=== PATIENT | male | born 1975 | race Caucasian/White ===

== ENCOUNTER 2020-01-13 15:17 | Outpatient (REF) | payer OTHER, SELFPAY ==
--- NOTE | 2020-01-13 15:32 | XR_ITS ---
EXAMINATION: XR LUMBOSACRAL SPINE CLINICAL INFORMATION: Lumbago. Sciatica. COMPARISON: None TECHNIQUE: Three views of the lumbosacral spine. FINDINGS: The vertebral bodies and posterior elements are normal. The disc spaces are preserved and the vertebral alignment is normal. The paraspinal soft tissues are normal. The sacroiliac joints are symmetric. The sacrum is intact. There does appear to be lumbarization of S1. XR/XR lumbar spine 2-3V IMPRESSION: Lumbarization of S1. Otherwise unremarkable lumbar spine radiographs.
--- NOTE | 2020-01-13 15:33 | XR_ITS ---
EXAMINATION: XR BILATERAL HIPS WITH AP PELVIS CLINICAL INFORMATION: Bilateral hip joint pain COMPARISON: None TECHNIQUE: 2 views of each hip FINDINGS: Right hip: No fracture or dislocation. The femoral head articulates appropriately with its acetabulum. The joint space is maintained. The visualized pelvis is intact. Left hip: No fracture or dislocation. Cam-type deformity at the left femoral head neck junction. The femoral head articulates appropriately with its acetabulum. The visualized pelvis is intact. The bowel gas pattern is unremarkable. 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 This may predispose to femoral acetabular impingement.
== END 2020-01-13 15:18 | disposition home or self-care (01) ==
LOC: HO.XRAY 15:17
PROVIDERS: PCP Internal Medicine; Visit Provider Internal Medicine
DX: M51.17 Intervertebral disc disorders with radiculopathy, lumbosacral region (principal); M25.551 Pain in right hip; M25.552 Pain in left hip
CPT/HCPCS: 72100; 73522

== ENCOUNTER 2020-01-20 15:41 | Outpatient (REF) | payer OTHER, SELFPAY ==
--- NOTE | 2020-01-20 16:00 | MR_ITS ---
EXAMINATION: MR LUMBAR SPINE WITHOUT CONTRAST CLINICAL INFORMATION: Low back pain. Leg pain. COMPARISON: X-ray dated 01/13/2020 TECHNIQUE: MRI of the lumbar spine was obtained using routine sequences without contrast. FINDINGS: VERTEBRAL BODIES AND PARASPINAL STRUCTURES: The S1 vertebra is transitional in appearance. There is a mild retrosubluxation and mild disc space narrowing with reduced intradiscal signal at L5-S1. No compression fractures identified. The paraspinal soft tissues are normal. CONUS MEDULLARIS AND CAUDA EQUINA: Normal, terminating at the level of L1-L2. No lower cord signal abnormality is seen. The cauda equina nerve roots are normal. SPINAL LEVELS: L1-L2, L2-L3, and L3-L4: Well-hydrated normal appearance of the discs without central canal stenosis or foraminal narrowing. L4-L5: Mild diffuse disc bulge without central canal stenosis. Right foraminal disc protrusion compresses the exiting right L4 nerve root with mild foraminal encroachment. L5-S1: Retrosubluxation and mild degenerative endplate changes with a posterior disc bulge and small central disc protrusion. No central canal stenosis. Bulging disc and endplate spurring result in [id number] right foraminal encroachment. MR/MR lumbar spine wo con IMPRESSION: Right foraminal disc protrusion at L4-L5 mildly compressing the exiting right L4 nerve root. Retrosubluxation with mild spondylitic changes and a posterior disc bulge and L5-S1. Small central disc protrusion without nerve root impingement. [id number] right foraminal narrowing, bulging disc and endplate spurring.
== END 2020-01-20 15:42 | disposition home or self-care (01) ==
LOC: HO.MRI 15:41
PROVIDERS: PCP Internal Medicine; Visit Provider Internal Medicine
DX: M51.16 Intervertebral disc disorders with radiculopathy, lumbar region (principal)
CPT/HCPCS: 72148

== ENCOUNTER 2021-06-03 10:00 | Outpatient (REF) | payer OTHER, SELFPAY ==
[2021-06-03 10:14] LABS: MANUAL DIFF FLAG NO
[2021-06-03 10:39] LABS: Basophils Percent Auto 0.4 % (0-2); Eosinophils Absolute Auto 0.2 X10*3/uL (0.0-0.4); Eosinophils Percent Auto 2.6 % (0-4); Hematocrit 46.3 % (42.0-52.0); Hemoglobin 15.6 g/dl (14.0-18.0); Imm Gran Abs Auto 0.01 X10*3/uL (0.00-0.03); Imm Gran Pct Auto 0.1 % (0.0-0.4); Lymphocytes Absolute Auto 1.7 X10*3/uL (1.2-4.9); Lymphocytes Percent Auto 24.5 % (20-40); Mean Corpuscular HGB Conc 33.7 g/dl (31.0-36.0); Mean Corpuscular Hemoglobin 30.4 pg (27.0-33.0); Mean Corpuscular Volume 90.1 fL (80.0-98.0); Mean Platelet Volume 11.3 fL (9.4-12.4); Monocytes Absolute Auto 0.6 X10*3/uL (0.1-1.2); Monocytes Percent Auto 8.1 % (2-11); Neutrophils Absolute Auto 4.4 x10*3/uL (2.0-8.3); Neutrophils Percent Auto 64.3 % (45-73); Platelet Count 261 X10*3/uL (160-400); Red Blood Count 5.14 X10*6/uL (4.60-5.80); White Blood Count 6.9 X10*3/uL (4.8-10.8)
[2021-06-03 11:02] LABS: Estimated Average Glucose 91 mg/dL; Hemoglobin A1c % 4.8 %
[2021-06-03 11:35] LABS: Alanine Aminotransferase 26 U/L (0-40); Albumin Level 4.8 g/dL (3.5-5.0); Alkaline Phosphatase 66 U/L (39-117); Anion Gap 16 (12-20); Aspartate Amino Transferase 23 U/L (5-37); Bilirubin Total 0.9 mg/dL (0.0-1.0); Blood Urea Nitrogen 13 mg/dL (9-16); Calcium 9.8 mg/dL (8.4-10.2); Carbon Dioxide 25 mmol/L (22-29); Chloride 103 mmol/L (96-108); Estimated Glomerular Filt Rate > 60; Glucose Random 85 mg/dL (60-115); Magnesium 2.6 mg/dL (1.6-2.6); Sodium 139 mmol/L (135-145); Total Protein 7.9 g/dL (6.5-8.0)
[2021-06-03 11:56] LABS: Thyroid Stimulating Hormone 0.81 uIU/mL (0.32-4.0)
== END 2021-06-03 10:01 | disposition home or self-care (01) ==
LOC: HO.LAB 10:00
PROVIDERS: PCP Internal Medicine; Visit Provider Physician Assistant
DX: R55 Syncope and collapse (principal)
CPT/HCPCS: 36415; 80053; 83036; 83735; 84443; 85025

== ENCOUNTER 2021-07-15 10:53 | Outpatient (REF) | payer OTHER, SELFPAY ==
--- NOTE | ~2021-07-15 | CT_ITS ---
EXAMINATION: CT HEAD WITHOUT CONTRAST CLINICAL INFORMATION: Repeated falls. COMPARISON: None TECHNIQUE: Contiguous axial imaging was performed from the skull base to vertex without intravenous administration of contrast. This CT examination was performed using dose optimization techniques as appropriate, variously including the following: *Automated exposure control *Adjustment of mA and/or kV according to patient size (this includes techniques or standardized protocols for targeted exams where dose is matched to indication/reason for exam; i.e. extremities or head) *Use of iterative reconstruction technique DLP: 770 mGy-cm FINDINGS: There is no evidence of acute intracranial hemorrhage or territorial infarction. No abnormal mass effect or midline shift is seen. Burgess to white matter differentiation is well preserved. No extra-axial fluid collections are identified. The ventricles are normal in size. There is no abnormal attenuation within the brain parenchyma. The osseous structures and soft tissues are normal. The mastoid air cells and visualized portions of the paranasal sinuses are well aerated. CT/CT head/brain wo con IMPRESSION: No acute intracranial process seen.
== END 2021-07-15 10:54 | disposition home or self-care (01) ==
LOC: HO.CT 10:53
PROVIDERS: PCP Internal Medicine; Visit Provider Physician Assistant
DX: R26.9 Unspecified abnormalities of gait and mobility (principal)
CPT/HCPCS: 70450

== ENCOUNTER → 2021-10-06 13:44 | Outpatient (REF) | payer OTHER, SELFPAY ==
--- NOTE | ~2021-10-06 | US_ITS ---
EXAMINATION: US EXTRACRANIAL CAROTID DUPLEX, BILATERAL CLINICAL INFORMATION: This is a 46-year-old male with syncope and collapse. COMPARISON: None TECHNIQUE: Real-time ultrasound and Doppler techniques (integrating B-mode 2-D vascular images, Doppler spectral analysis and color-flow Doppler imaging) were utilized to interrogate the extracranial carotid arteries, the vertebral arteries and proximal subclavian arteries bilaterally. The degree of stenosis is determined by criteria similar to NASCET. FINDINGS: Right Side: 1. There is no atherosclerotic plaque seen in the bifurcation/proximal ICA region. 2. The common carotid artery PSV proximally is 127 cm/s and distally 110 cm/s. 3. The proximal internal carotid artery velocities are 56 cm/s systolic and 9 cm/s diastolic. 4. The proximal external carotid artery PSV is 127 cm/s. 5. The vertebral artery shows antegrade flow. 6. The subclavian artery waveforms are normal. Left Side: 1. There is no atherosclerotic plaque seen in the bifurcation/proximal ICA region. 2. The common carotid artery PSV proximally is 152 cm/s and distally 107 cm/s. 3. The proximal internal carotid artery velocities are 68 cm/s systolic and 12 cm/s diastolic. 4. The proximal external carotid artery PSV is 79 cm/s. 5. The vertebral artery shows antegrade flow. 6. The subclavian artery waveforms are normal. US/US carotid duplex BI IMPRESSION: 1. RIGHT: Normal right internal carotid artery without atherosclerotic plaque or hemodynamically significant stenosis. 2. LEFT: Normal left internal carotid artery without atherosclerotic plaque or hemodynamically significant stenosis.
--- NOTE | 2021-10-06 14:00 | HM_ITS ---
TEST PERFORMED: Cardiac event monitoring. ENROLLMENT PERIOD: 10/06/2021 to 11/05/2021, 30 days. REQUESTING PHYSICIAN: Jaky Couch. INDICATIONS: Syncope and collapse. FINDINGS: In the above monitoring period, underlying rhythm was sinus. Rate ranged from 38 to 149 beats per minute. No significant arrhythmias noted. CONCLUSION: The study shows sinus rhythm, sinus tachycardia, but no other arrhythmias. No symptoms documented either. Overall unremarkable study. Santiago Henao MD HS/KELLE / [id number]
== END ==
LOC: HO.CARD 13:44
PROVIDERS: PCP Internal Medicine; Visit Provider Physician Assistant
DX: R55 Syncope and collapse (principal)
CPT/HCPCS: 93270; 93880

== ENCOUNTER 2022-05-30 05:31 | Emergency (ER) | payer OTHER, SELFPAY ==
[2022-05-30 05:41] VITALS: BP 138/86; PULSE 63; RESP 16; TEMP 36.6; O2SAT 100; BMI 26.6
--- NOTE | 2022-05-30 06:13 | ED_ITS ---
HPI - Back Pain/Injury General Chief Complaint: Back Pain/Injury Stated Complaint: back spasms Time Seen by Provider: 05/30/22 06:13 Source: patient Mode of arrival: ambulatory Limitations: no limitations History of Present Illness HPI Narrative: Patient with off and on back spasm last time was 2 years ago today he got up from the bed and noticed severe spasm on left lumbar paraspinal area no radiation of the pain no neuro deficit no bladder or bowel involvement no paresthesia no history of trauma no fever or chills no history of kidney stone no urinary complaints no abdominal pain no nausea vomiting Related Data Previous Rx's Medication Instructions Recorded cyclobenzaprine 10 mg tablet 10 mg PO Q8H #20 tabs 05/30/22 ibuprofen 600 mg tablet 600 mg PO Q6H PRN fever or pain 05/30/22 #30 tabs lidocaine 4 % topical patch 1 patch topical DAILY PRN pain #10 05/30/22 (Salonpas (lidocaine)) ea Allergies Allergy/AdvReac Type Severity Reaction Status Date / Time No Known Allergies Allergy Verified 05/30/22 05:47 Review of Systems Review of Systems: Yes all other systems are reviewed and are negative [facility] Social History Social History Smoked in Last 30 Days: No Use of substances other than those prescribed or required for medical reasons: No Advance Directives: No Physical Exam Vital Signs: Vital Signs: Last Vital Signs Temp 97.8 F 05/30/22 05:41 Pulse 63 05/30/22 05:41 Resp 16 05/30/22 05:41 BP 138/86 05/30/22 05:41 Pulse Ox 100 05/30/22 05:41 O2 Del Method Room Air 05/30/22 05:41 BMI result Body Mass Index 26.6 Appearance: Alert. Oriented X3. No acute distress. Eyes: PERRLA, ENT: Pharynx normal. Oral Mucosa moist Neck: Normal inspection. Neck supple. CVS: Normal heart rate and rhythm. Pulses normal. Respiratory: No respiratory distress. Equal air entry bilateral, no wheezing/rales/rhonchi Abdomen: Soft and nontender. Bowel sounds are present, no mass palpable, no CVA tenderness back: No midline spinal tenderness left lumbar paraspinal tenderness with spasm Skin: Skin warm and dry. Normal skin color. Normal skin turgor. Extremities: No lower extremity edema. No calf tenderness, straight leg raising test negative deep tendon reflexes 2+ bilateral Neuro: Oriented X 3. No motor deficit. No sensory deficit.No cerebellar signs , cranial nerves II-XII intact Medications Administered Discontinued Medications Generic Name Dose Route Start Last Admin Trade Name Freq PRN Reason Stop Dose Admin Cyclobenzaprine HCl 10 mg 05/30/22 06:22 05/30/22 06:28 Cyclobenzaprine Hcl 10 Mg Tablet PO 05/30/22 06:23 10 mg ONCE ONE Administration Lidocaine 1 patch 05/30/22 06:23 05/30/22 06:28 Lidocaine 4 % Patch Adh..Patch TRANSDERMA 05/30/22 06:24 1 patch ONCE ONE Administration Protocol Tramadol HCl 50 mg 05/30/22 06:22 05/30/22 06:27 Tramadol Hcl 50 Mg Tablet PO 05/30/22 06:23 50 mg ONCE ONE Administration Medical Decision Making Medical Decision Making MDM Narrative: Patient clinically with muscle spasm in lumbar area patient the left side no signs of spinal cord involvement no signs of infection. Discharge patient home on muscle relaxant and pain medication patient ambulatory in steady gait Discharge Plan Discharge Clinical Impression: Strain of lumbar region Patient Disposition: Home, Self-Care Instructions: Low Back Strain (ED) Additional Instructions: Take pain medication and muscle relaxants as prescribed Apply lidocaine patch at painful area Ice/hot packs Rest Follow with PCP if pain continues Prescriptions: New cyclobenzaprine 10 mg tablet 10 mg PO Q8H Qty: 20 0RF ibuprofen 600 mg tablet 600 mg PO Q6H PRN (Reason: fever or pain) Qty: 30 0RF lidocaine [Salonpas (lidocaine)] 4 % adhesive patch,medicated 1 patch topical DAILY PRN (Reason: pain) Qty: 10 0RF Rx Instructions: may leave on for up to 12 hrs Stand Alone Forms: Work/School Release Interventions: ED Discharge Assessment Last Done: 05/30/22 06:50 Discharge Date/Time: 05/30/22 06:52
[2022-05-30] MEDS: traMADoL HCL 50 MG TABLET PO (06:27)
[2022-05-30] MEDS: Cyclobenzaprine HCl 10 MG TABLET PO (06:28)
[2022-05-30] MEDS: Lidocaine 4 % Patch ADH..PATCH 1 PATCH TRANSDERMA (06:28)
--- NOTE | 2022-05-30 06:48 | PC.NURSE ---
pt medicated according to apr. pt calm and cooperative sitting on side of bed.
--- NOTE | 2022-05-30 06:49 | PC.NURSE ---
pt ambulatory at discharge. skin pwd. pt provided with discharge packet and work note. pt verbalized understanding of discharge plan.
== END 2022-05-30 06:52 | disposition home or self-care (01) ==
PROVIDERS: Emergency Provider Internal Medicine; PCP Internal Medicine
DX: M54.50 Low back pain, unspecified (principal)
CPT/HCPCS: 99283; 99284

== ENCOUNTER 2022-07-04 09:33 | Outpatient (REF) | payer OTHER, SELFPAY ==
[2022-07-04 12:42] LABS: Alanine Aminotransferase 44 U/L (0-40); Albumin Level 4.5 g/dL (3.5-5.0); Alkaline Phosphatase 56 U/L (39-117); Anion Gap 13 (12-20); Aspartate Amino Transferase 29 U/L (5-37); Blood Urea Nitrogen 15 mg/dL (9-16); Calcium 9.5 mg/dL (8.4-10.2); Carbon Dioxide 28 mmol/L (22-29); Chloride 104 mmol/L (96-108); Cholesterol 248 mg/dL; Estimated Glomerular Filt Rate > 60; Glucose Random 95 mg/dL (60-115); HDL Cholesterol 45 mg/dL; LDL Cholesterol Calculated 169 mg/dl; Potassium 4.7 mmol/L (3.3-5.1); Sodium 140 mmol/L (135-145); Total Protein 7.1 g/dL (6.5-8.0); Triglycerides 172 mg/dL
== END 2022-07-04 09:34 | disposition home or self-care (01) ==
LOC: HO.MANLDS 09:33
PROVIDERS: Visit Provider Internal Medicine
DX: Z00.00 Encounter for general adult medical examination without abnormal findings (principal); M62.82 Rhabdomyolysis; E78.00 Pure hypercholesterolemia, unspecified
CPT/HCPCS: 36415; 80053; 80061

== ENCOUNTER 2023-03-09 17:14 | Outpatient (REF) | payer OTHER, SELFPAY ==
--- NOTE | ~2023-03-09 | MR_ITS ---
MRI OF THE BRAIN WITHOUT IV CONTRAST INDICATION: TBI, IED Strike worsening memory, concentration COMPARISON: CT head on 07/15/2021. TECHNIQUE: Multiplanar multisequence MR imaging of the brain was obtained without IV contrast. FINDINGS: No acute intracranial hemorrhage or infarct. Few scattered periventricular and deep white matter T2/FLAIR hyperintensities, nonspecific however commonly seen with small vessel ischemic disease. No midline shift or hydrocephalus. No acute extra-axial fluid collections. The osseous structures are unremarkable. The pituitary gland, pineal gland and remaining midline structures are unremarkable. No orbital pathology. Mild mucosal thickening of the ethmoid air cells. The mastoid air cells are clear. MR/MR head/brain wo con IMPRESSION: Unremarkable MRI brain.
== END 2023-03-09 17:15 | disposition home or self-care (01) ==
LOC: HO.MRI 17:14
PROVIDERS: PCP Internal Medicine; Visit Provider Internal Medicine
DX: S06.9X0D Unspecified intracranial injury without loss of consciousness, subsequent encounter (principal)
CPT/HCPCS: 70551

== ENCOUNTER 2023-06-01 08:02 | Outpatient (REF) | payer OTHER, SELFPAY ==
[2023-06-01 08:14] LABS: MANUAL DIFF FLAG NO
[2023-06-01 08:48] LABS: Basophils Percent Auto 0.7 % (0-2); Eosinophils Absolute Auto 0.1 X10*3/uL (0.0-0.4); Eosinophils Percent Auto 2.6 % (0-4); Hematocrit 45.4 % (42.0-52.0); Hemoglobin 15.6 g/dl (14.0-18.0); Imm Gran Abs Auto 0.02 X10*3/uL (0.00-0.03); Imm Gran Pct Auto 0.4 % (0.0-0.4); Lymphocytes Absolute Auto 1.5 X10*3/uL (1.2-4.9); Lymphocytes Percent Auto 33.9 % (20-40); Mean Corpuscular HGB Conc 34.4 g/dl (31.0-36.0); Mean Corpuscular Hemoglobin 30.8 pg (27.0-33.0); Mean Corpuscular Volume 89.5 fL (80.0-98.0); Mean Platelet Volume 10.9 fL (9.4-12.4); Monocytes Absolute Auto 0.4 X10*3/uL (0.1-1.2); Monocytes Percent Auto 7.9 % (2-11); Neutrophils Absolute Auto 2.5 x10*3/uL (2.0-8.3); Neutrophils Percent Auto 54.5 % (45-73); Platelet Count 261 X10*3/uL (160-400); Red Blood Count 5.07 X10*6/uL (4.60-5.80); White Blood Count 4.5 X10*3/uL (4.8-10.8)
[2023-06-01 09:18] LABS: Alanine Aminotransferase 31 U/L (0-40); Albumin Level 4.5 g/dL (3.5-5.0); Alkaline Phosphatase 61 U/L (39-117); Anion Gap 13 (12-20); Aspartate Amino Transferase 20 U/L (5-37); Bilirubin Total 0.9 mg/dL (0.0-1.0); Blood Urea Nitrogen 14 mg/dL (9-16); Calcium 9.6 mg/dL (8.4-10.2); Carbon Dioxide 26 mmol/L (22-29); Chloride 107 mmol/L (96-108); Cholesterol 225 mg/dL (<200); Estimated Glomerular Filt Rate > 60; Glucose Random 90 mg/dL (60-115); HDL Cholesterol 42 mg/dL (>40); LDL Cholesterol Calculated 159 mg/dL (<100); Potassium 4.1 mmol/L (3.3-5.1); Sodium 142 mmol/L (135-145); Total Protein 7.3 g/dL (6.5-8.0); Triglycerides 120 mg/dL (<150)
[2023-06-01 09:34] LABS: Vitamin D 25-OH Total 18.4 ng/mL (>30)
[2023-06-01 09:43] LABS: Folate 11.2 ng/mL (> or = 4.0); Vitamin B12 252 pg/mL (200-900)
[2023-06-06 12:23] LABS: Testosterone, Total 599 ng/dL (250-1100)
== END 2023-06-01 08:03 | disposition home or self-care (01) ==
LOC: HO.LAB 08:02
PROVIDERS: PCP Internal Medicine; Visit Provider Internal Medicine
DX: Z12.5 Encounter for screening for malignant neoplasm of prostate (principal); I10 Essential (primary) hypertension; R53.83 Other fatigue
CPT/HCPCS: 36415; 80053; 80061; 82306; 82607; 82746; 84153; 84403; 85025

== ENCOUNTER 2023-08-21 07:32 | Outpatient (REF) | payer OTHER, SELFPAY ==
[2023-08-21 09:22] LABS: Vitamin D 25-OH Total 30.4 ng/mL (>30)
[2023-08-21 09:31] LABS: Vitamin B12 > 2000 pg/mL (200-900)
== END 2023-08-21 07:33 | disposition home or self-care (01) ==
LOC: HO.LAB 07:32
PROVIDERS: PCP Internal Medicine; Visit Provider Internal Medicine
DX: E55.9 Vitamin D deficiency, unspecified (principal); E53.8 Deficiency of other specified B group vitamins
CPT/HCPCS: 36415; 82306; 82607

== ENCOUNTER 2024-12-30 07:10 | Outpatient (REF) | payer OTHER, SELFPAY ==
--- OUTSIDE RECORDS SUMMARY | 2024-12-30 07:14 | XMS_ITS | Clinical Summary ---
Author Organization [facility] Address [address] [place] [address] Care Team Providers Care Composition Floor Layer Name Role Phone Unavailable Primary Care Provider Unavailabl e Social History Tobacco Use Types Packs/Day Years Used Date Smoking Tobacco: Never Assessed Sex and Gender Information Value Date Recorded Sex Assigned at Not on file Legal Sex Male 11:34 AM EST Gender Identity Not on file Sexual Orientation Not on file Plan of Treatment Health Maintenance Due Date Last Done Comments Hepatitis C Screening 1977 DTaP/Tdap/Td (1 - Tdap) 06/11/1995 Hep B (1 of 3 - 19+ 3-dose series) 1996 COVID-19 Vaccine (2024-2 6 season) 2024 Influenza (#1) 2024 Zoster (Shingrix) (1 of 2) 06/11/2027 HPV Vaccine (No Doses Required) Completed Hep A Aged Out No longer eligi ble based on patient's age to complete this topic Hib Aged Out No longer eligi ble based on patient's age to complete this topic Meningococcal ACWY Aged Out No longer eligible based on patient's age to complete this topic Pneumococcal Aged Out No longer eligi ble based on patient's age to complete this topic
--- OUTSIDE RECORDS SUMMARY | 2024-12-30 07:14 | XMS_ITS | Encounter Summary ---
Author Organization [facility] Address [address] [address] Phone Care Team Providers Care Purchaser Name Role Phone Pcp, Unknown Primary Care Provider Jaswinder Castro DO Primary Care Provider [phone] Encounter Details Date Type Department Care Team (Latest Contact Info) Description 05/09/2019 Transcribe Orders [facility] PFT Lab [address] [place] [address] Lisa Adam PA-C [address] [place] [address] [email or web address] Dyspnea, unspecified type (Primary Dx) Social History Tobacco Use Types Packs/Day Years Used Date Smoking Tobacco: Never Assessed Sex and Gender Information Value Date Recorded Sex Assigned at Not on file Legal Sex Male 9:25 PM EDT Gender Identity Not on file Sexual Orientation Not on file documented as of this encounter Plan of Treatment Not on file documented as of this encounter Results * Pulmonary Function Test Reason for Exam: Dyspnea/Shortness of Breath; Type of PFT Test: Spirometry with bronchodilator, Lung Volumes, DLCO; Performing Location: [facility] (05/13/2019 7:55 AM EDT) FEV1 3.78 liters FVC 5.11 liters FEV1/FVC 74 % TLC 7.61 liters DLCO 33.5 ml/mmHg sec Anatomical Region Laterality Modality Other Impressions 05/13/2019 7:55 AM EDT PULMONARY FUNCTION STUDIES Full pulmonary function studies were performed on this 43 y.o. year-old male for evaluation of dyspnea. Review of the medical record reveals that the patient is a past smoker. Prior pulmonary function studies are not available for comparison. SPIROMETRY: The FEV1 is normal at 3.78 L or 100% predicted. The FVC is normal at 5.11 L or 103% predicted. The FEV1/FVC ratio is normal at 74%. After the administration of a bronchodilator agent, there is no significant change. FLOW-VOLUME LOOPS: Evaluation of the flow-volume loops reveals normal morphology of both the inspiratory and expiratory limbs with no significant difference when comparing the tracings performed pre- and post-bronchodilator. LUNG VOLUME MEASUREMENTS BY PLETHYSMOGRAPHY: The total lung capacity is normal at 7.61 L or 113% predicted. The functional residual capacity is normal at 4.30 L or 119% predicted. DIFFUSION CAPACITY: The diffusion capacity is normal at 33.5 mL/mmHg sec or 123% predicted. Resting oxygen saturation is 100% on room air. IMPRESSION: This represents normal pulmonary function studies. If a diagnosis of asthma is in question, a methacholine challenge study could be obtained to further evaluate this. us Provider Not In System PhD PFT ORDERABLES Final Result documented in this encounter Visit Diagnoses Diagnosis Dyspnea, unspecified type- Primary Dyspnea, unspecified type documented in this encounter Care Teams Purchaser Relationship Specialty Start Date End Date Pcp, Unknown PCP - General 04/18/19 05/12/19 Jaswinder Menendez DO [email or web address] PCP - General Internal Medicine 05/13/19 documented as of this encounter Additional Source Comments The information contained in this document represents components of the legal health record. It is not the complete legal health record.[facility]
--- OUTSIDE RECORDS SUMMARY | 2024-12-30 07:14 | XMS_ITS | Clinical Summary ---
Author Organization [facility] Address [address] [address] Phone Care Team Providers Care Collection Systems Foreman Name Role Phone Jaswinder Menendez Primary Care Provider [phone] Allergies Active Allergy Reactions Criticality Noted Date Comments Hay Fever And Allergy Relief 020 Social History Tobacco Use Types Packs/Day Years Used Date Smoking Tobacco: Never Assessed Education Answer Date Recorded Are you interested in more education? Not on shana e 06/24/2022 Are you concerned about learning? Not on file 06/24/2022 No 06/24/2022 No 06/24/2022 Digital Access Answer Date Recorded No 07/25/2022 No 07/25/2022 No 07/25/2022 Reliable internet access at home? Not on file 07/25/2022 Device with a working camera? Not on file Sex and Gender Information Value Date Recorded Sex Assigned at Not on file Legal Sex Male 9:25 PM EDT Gender Identity Not on file Sexual Orientation Not on file Plan of Treatment Not on file Medical Devices Not on file Insurance [facility] [place] [place] [address] [place] [address] [place] [address] [facility] [place] [place] [address] [place] [address] [facility] Address: [facility] [id number] [place] [address] Care Teams Collection Systems Foreman Relationship Specialty Start Date End Date Jaswinder Menendez DO [email or web address] PCP - General Internal Medicine 05/13/19 Additional Source Comments The information contained in this document represents components of the legal health record. It is not the complete legal health record.[facility]
--- OUTSIDE RECORDS SUMMARY | 2024-12-30 07:14 | XMS_ITS | Encounter Summary ---
Author Organization [facility] Address [address] [facility] [address] [place] [phone] Phone Care Team Providers Care Optical Goods Drilling Machine Operator Name Role Phone Pcp, Unknown Primary Care Provider Jaswinder Castro DO Primary Care Provider [phone] Encounter Details Date Type Department Care Team (Latest Contact Info) Description 04/12/2019 Transcribe Orders Virtual Department [address] [place] [address] Lisa Adam PA-C [address] [place] [address] [email or web address] Dyspnea, unspecified type (Primary Dx) Social [...] on file documented as of this encounter Visit Diagnoses Diagnosis Dyspnea, unspecified type- Primary documented in this encounter Care Teams Optical Goods Drilling Machine Operator Relationship Specialty Start Date End Date Pcp, Unknown PCP - General 04/18/19 05/12/19 Jaswinder Menendez DO PCP - General Internal Medicine 05/13/19 documented as of this encounter Additional Source Comments The information contained in this document represents components of the legal health record. It is not the complete legal health record.[facility]
--- OUTSIDE RECORDS SUMMARY | 2024-12-30 07:14 | XMS_ITS | Data Portability ---
Author Organization [facility], Telehealth Patient Home Address [address] [place] [address] Assessment Encounter Date Assessment Date Assessment LastModified by Organization Details LastModified Time 05/24/2023 05/24/2023 [id number] [place] [id number] (STORE SPECIALIST) : MDM LOW MUST MEET 2 OF 3 ELEMENTS: PROBLEMS, DATA OR RISK ELEMENT 1: PROBLEMS ADDRESSED (LOW): 2 OR MORE SELF-LIMITED OR MINOR PROBLEMS OR 1 STABLE CHRONIC ILLNESS OR 1 ACUTE UNCOMPLICATED ILLNESS OR INJURY ELEMENT 2: DATA TO BE REVISED AND ANALYZED (LOW) MUST MEET 1 OF 2 CATEGORIES: CATEGORY 1. REVIEW OF PRIOR EXTERNAL NOTES/RESULTS, ORDERING OF TEST(S) CATEGORY 2. ASSESSMENT REQUIRING INDEPENDENT HISTORIAN(S) INCLUDE WHO THE HISTORIAN IS AND RELATION TO PT AND WHY PT IS UNABLE TO GIVE COMPLETE HISTORY ELEMENT 3: RISK (LOW) RISK OF COMPLICATIONS AND/OR MORBIDITY OR MORTALITY OF PATIENT MANAGEMENT PROVIDER MUST THOROUGHLY DOCUMENT ALL OF THE ELEMENTS COVERED Not available 05/24/2023 16:30:52 08/30/2023 08/30/2023 [id number] [place] [id number] (STORE SPECIALIST) MDM MODERATE MUST MEET 2 OUT OF 3 ELEMENTS: PROBLEMS, DATA OR RISK ELEMENT 1: PROBLEMS ADDRESSED 1 OR MORE CHRONIC ILLNESS WITH EXACERBATION OR 2 OR MORE STABLE CHRONIC ILLNESSES OR 1 UNDIAGNOSED NEW PROBLEM OR 1 ACUTE ILLNESS W/SYMPTOMS OR 1 ACUTE COMPLICATED INJURY ELEMENT 2: DATA MUST MEET 1 OF 3 CATEGORIES CATEGORY 1: REVIEW OF PRIOR EXTERNAL NOTES, REVIEW OF RESULTS, ORDERING OF EACH TEST, ASSESSMENT REQUIRING INDEPENDENT HISTORIAN OR CATEGORY 2: INDEPENDENT INTERPRETATION OF TESTS BY ANOTHER PHYSICIAN OR SPECIALIST OR CATEGORY 3: DISCUSSION OF MGT OR TEST INTERPRETATION W/EXTERNAL PHYSICIAN OR SPECIALIST ELEMENT 3: RISK RISK OF COMPLICATIONS AND/OR MORBIDITY OR MORTALITY OF PATIENT MANAGEMENT PROVIDER MUST THOROUGHLY DOCUMENT EACH ELEMENT THAT IS COVERED Not available 08/30/2023 10:40:35 10/23/2023 10/23/2023 [id number] [place] [id number] (STORE SPECIALIST) MDM MODERATE MUST MEET 2 OUT OF 3 ELEMENTS: PROBLEMS, DATA OR RISK ELEMENT 1: PROBLEMS ADDRESSED 1 OR MORE CHRONIC ILLNESS WITH EXACERBATION OR 2 OR MORE STABLE CHRONIC ILLNESSES OR 1 UNDIAGNOSED NEW PROBLEM OR 1 ACUTE ILLNESS W/SYMPTOMS OR 1 ACUTE COMPLICATED INJURY ELEMENT 2: DATA MUST MEET 1 OF 3 CATEGORIES CATEGORY 1: REVIEW OF PRIOR EXTERNAL NOTES, REVIEW OF RESULTS, ORDERING OF EACH TEST, ASSESSMENT REQUIRING INDEPENDENT HISTORIAN OR CATEGORY 2: INDEPENDENT INTERPRETATION OF TESTS BY ANOTHER PHYSICIAN OR SPECIALIST OR CATEGORY 3: DISCUSSION OF MGT OR TEST INTERPRETATION W/EXTERNAL PHYSICIAN OR SPECIALIST ELEMENT 3: RISK RISK OF COMPLICATIONS AND/OR MORBIDITY OR MORTALITY OF PATIENT MANAGEMENT PROVIDER MUST THOROUGHLY DOCUMENT EACH ELEMENT THAT IS COVERED Not available 10/23/2023 15:25:31 Plan of Treatment Reminders Order Date Submit Date Provider Last Modified By Organization Details Last Modified Time Details Appointments FOLLOW UP 15 2025 09:45A M DR VARGAS Not available Not available Not available Lab CMP, serum or plasma 2024 [facility], [address] [place] [address], [id number], 12/17/2024 10:28:06 CBC w/ auto diff 2024 025 [facility], [address] [place] [address], [id number], 12/17/2024 10:28:06 PSA, serum or plasma 2024 025 [facility], [address] [place] [address], [id number], 12/17/2024 10:28:06 lipid panel, blood 2024 025 [facility], [address] [place] [address], [address], 12/17/2024 10:28:06 vitamin D, 25-hydrox y, total, serum 2024 025 [facility], [address] [place] [address], [id number], 12/17/2024 10:28:06 vitamin D, 25-hydrox y, total, serum 2023 024 [facility], [address] [place] [address], [address], 07/25/2023 10:25:50 vitamin B12, serum 2023 024 [facility], [address] [place] [address], [address], 08/21/2023 11:08:57 CMP, serum or plasma 2023 024 [facility], [address] [place] [address], [id number], 06/01/2023 11:11:00 lipid panel, blood 2023 024 [facility], [address] [place] [address], [id number], 06/01/2023 11:11:01 CBC 2023 024 [facility], [address] [place] [address], [id number], 05/24/2023 16:38:02 CBC 2023 024 [facility], [address] [place] [address], [id number], 06/01/2023 11:11:01 PSA, serum or plasma 2023 024 [facility], [address] [place] [address], [address], 05/24/2023 16:38:02 vitamin D, 25-hydrox y, total, serum 2023 024 [facility], [address] [place] [address], [address], 05/24/2023 16:38:02 vitamin D, 25-hydrox y, total, serum 2023 024 [facility], [address] [place] [address], [address], 05/24/2023 16:38:02 testoster one, total, serum 2023 024 [facility], [address] [place] [address], [address], 06/07/2023 11:08:00 vitamin B12 + folate, serum or blood 2023 024 [facility], [address] [place] [address], [address], 05/24/2023 16:38:02 vitamin B12 + folate, serum or blood 2023 024 [facility], [address] [place] [address], [address], 05/24/2023 16:38:02 Referral sleep medicine referral - cpap mask inadequat e 2023 024 [email or web address] Pelletier MD, [address] [place] [address], [facility], [place], [address], 08/30/2023 08:31:36 Procedures None recorded. Surgeries None recorded. Imaging None recorded. Medication Orders loperamid e 2 mg capsule 2024 025 [facility], [address] [place] [address], [place], [address], 12/17/2024 10:22:26 mirtazapi ne 15 mg tablet 2023 024 [email or web address] [id number], [address] [place] [address], [id number], 12/17/2024 09:53:21 mirtazapi ne 7.5 mg tablet 2023 024 [facility] #[id number], [address], [place], [phone], 10/23/2023 14:52:58 triamcino lone acetonide 0.1 % topical cream 2023 024 [facility] #39486, [address], [place], [id number], 07/25/2023 10:16:25 lisinopri l 10 mg tablet 2023 024 [facility] #77920, [address], [place], [id number], 05/24/2023 17:55:36 Patient TargetsNo targets recorded. Patient Instructions Encounter Date Encounter Id Patient Instructions Last Modified By Organization Details Last Modified Time 07/25/2023 [id number] sleep apnea: car e instructions Not available 07/25/2023 10:13:42 insomnia: care instructions Not available 07/25/2023 10:07:00 08/30/2023 [id number] insomnia: care instructions Not available 08/30/2023 10:46:36 Reason for Referral Sleep Medicine Referral for Sleep apnea cpap mask inadequate Referring Physician: Jaswinder Vargas, Internal Medicine, Encounter Date: 07/25/2023 Results Created Date Observation Date Name Description Value Unit Range Abnormal Flag Note LastModifiedBy Organization Detail LastModifiedTime 09/14/1909/12/2023 MRI, cervi sasha spine , w/o contr ast No observ ation record ed. [email or web address] [facility] [address] [place], [address], 09/15/2023 09:03:23 09/15/19 24 09/12/2023 MRI, cervi sasha spine , w/o contr ast No observ ation record ed. [email or web address] [facility] [address] [place], [address], 09/15/2023 09:02:46 10/17/19 24 10/16/2023 MRI, lumba r spine , w/o contr ast No observ ation record ed. [email or web address] Not Available 2023 09:35:02 10/18/19 24 10/16/2023 MRI, lumba r spine , w/o contr ast No observ ation record ed. [facility] [address] [place], [address], 10/18/2023 12:05:24 Result Notes None recorded. 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 2019 [facility] 0 09:49:09 Herniatio n of lumbar intervert ebral disc with sciatica 011963496935 105 Active 2021 Jaswinder Vargas DO [address] [place] [address], [address], [facility] 2 09:50:11 Numbness of hand 756644819 Active 2021 Jaswinder Vargas DO [address] [place] [address], [address], [facility] 2 09:58:54 Bilateral carpal tunnel syndrome 636894750742 06607 Active 2022 Jaswinder Vargas DO [address] [place] [address], [address], [facility] 3 21:47:47 Spasm of muscle of lower back 058240920978 68398 Active 2022 FRAN NICHOLSON [address] [place] [address], [address], [facility] 3 09:18:09 Hypertens wai disorder 01816934 Active 2022 Jaswinder Vargas, DO [address] [place] [address], [address], [facility] 3 15:10:16 Traumatic brain injury 299017811 Active 2022 Jaswinder Vargas, DO [address] [place] [address], [address], [facility] 3 15:13:11 Fatigue 13186357 Active 2023 Jaswinder Vargas, DO [address] [place] [address], [address], [facility] 4 16:36:25 Insomnia 587395497 Active 2023 Jaswinder Vargas, DO [address] [place] [address], [address], [facility] 4 10:06:44 Sleep apnea 69905278 Active 2023 Jaswinder Vargas, DO [address] [place] [address], [address], [facility] 4 10:11:49 Vitamin D deficienc y 27416126 Active 2023 Jaswinder Vargas DO [address] [place] [address], [address], [facility] 4 10:14:53 Cobalamin deficienc y 973448009 Active 2023 Jaswinder Vargas, DO [address] [place] [address], [address], [facility] 4 10:15:06 Eczema 12534343 Active 2023 Jawsinder Vargas, DO [address] [place] [address], [address], [facility] 4 10:15:46 Myelopath y due to cervical spondylos is 2622541821 Active 2023 Jaswinder Vargas DO [address] [place] [address], [address], [facility] 4 22:54:24 Lumbar spondylos is with myelopath y 59888889 Active 2023 Jaswinder Vargas, [address] [place], [address], [facility] 4 15:26:54 Irritable bowel syndrome with diarrhea 320455999 Active 2024 Jaswinder Vargas DO [address] [place], [address], [facility] 5 10:07:52 Problem Notes None recorded. Procedures Surgical History Date Name Laterality Status Provider Name and Address Organization Details Recorded Time Unlisted procedure nose completed Bessy Perezmari [facility] 04/12/2019 09:46:16 Imaging Results None recorded. Procedure Notes None recorded. Medical Equipment None Reported. Allergies No known drug allergies Medications Name Sig Start Date Stop Date Status Note LastModified by Organization Details LastModified Time p-4 pain formulation versatile Apply 1-3 grams to the affected area 3-4 times daily (LOWER FOR BACK) 02/17 completed Not Available Not Available Not Available pain relief lidocaine 4% patch 5s APPLY 1 PATCH TOPICALLY FOR 12 HOURS ON THEN 12 HOURS OFF 02/17 completed Not Available Not Available Not Available cyclobenzap rine 10 mg tablet TAKE 1/2 TO 1 TABLET BY MOUTH TWICE DAILY NEEDED FOR MUSCLE SPASM 12/17 completed Not Available Not Available Not Available prednisone 10 mg tablet 06/10 completed Not Available Not Available Not Available loperamide 2 mg capsule Take 1 capsule 3 times a day by oral route before meal(s) for 30 days. 2024 active Not Available Not Available Not Avai lable topiramate 25 mg tablet TAKE 1 TABLET BY MOUTH EVERY DAILY 12/17 completed Not Available Not Available Not Available naproxen 125 mg/5 mL oral suspension TAKE 10-20ML BY MOUTH TWICE DAILY NEEDED FOR PAIN 02/17 completed Not Available Not Available Not Available acetaminoph en 500 mg tablet TAKE 1 TABLET BY MOUTH THREE TIMES DAILY NEEDED FOR PAIN 07/24 completed Not Available Not Available Not Available triamcinolo ne acetonide 0.1 % topical cream APPLY THIN LAYER TOPICALLY TO THE AFFECTED AREA TWICE DAILY active Not Available Not Available No t Available prednisone 10 mg tablets in a dose pack Take 4 tablets every day by oral route for 12 days. 01/12 completed Not Available Not Available Not Available lisinopril 10 mg tablet TAKE 1 TABLET BY MOUTH EVERY DAY active Not Available Not Available No t Available gabapentin 300 mg capsule TAKE 1 CAPSULE BY MOUTH AT BEDTIME 12/17 completed Not Available Not Available Not Available diclofenac sodium 75 mg tablet,yovany yed release TAKE 1 TABLET BY MOUTH TWICE DAILY WITH FOOD NO OTHER NSAIDS 12/17 completed Not Available Not Available Not Available lisinopril 5 mg tablet TAKE 1 TABLET BY MOUTH EVERY DAY 07/24 completed Not Available Not Available Not Available mirtazapine 15 mg tablet TAKE 1 TABLET BY MOUTH EVERY DAY 12/17 completed Not Available Not Available Not Available ibuprofen 600 mg tablet TAKE 1 TABLET BY MOUTH THREE TIMES DAILY WITH MEALS NEEDED FOR PAIN. MAX 2400 MG DAILY 07/24 completed Not Available Not Available Not Available oxycodone-a cetaminophe n 7.5 mg-325 mg tablet PLEASE SEE ATTACHED FOR DETAILED DIRECTION S 06/10 completed Not Available Not Available Not Available diazepam 5 mg tablet Take 1 tablet every 6 hours by oral route as needed. 06/10 completed Not Available Not Available Not Available mirtazapine 7.5 mg tablet TAKE 1 TABLET BY MOUTH EVERY DAY 10/22 completed Not Available Not Available Not Available Flovent HFA 110 mcg/actuati on aerosol inhaler Inhale 1 puff twice a day by inhalatio n route for 30 days. 01/12 completed Not Available Not Available Not Available ProAir HFA 90 mcg/actuati on aerosol inhaler 01/12 completed Not Available Not Available Not Available Vitals Date Recorded Body weight Heart rate Oxygen saturation Oxygen saturation in Arterial blood by Pulse oximetry Systolic And Diastolic Provider Name and Address Organization Details Last Updated DateTime 4 18538.1 2 g 83 /min 99 % 99 % 148/98 mm[Hg] [facility] 4 15:59:55 Date Recorded Body height Body mass index (BMI) Body weight Heart rate Respiratory rate Oxygen saturation Oxygen saturation in Arterial blood by Pulse oximetry Systolic And Diastolic Provider Name and Address Organization Details Last Updated DateTime 4 177.8 cm 26 kg/m2 43316.0 2 g 64 /min 16 /min 99 % 99 % 130/78 mm[Hg] Andrew Yepez [facility] 4 09:15:11 Date Recorded Body height Body mass index (BMI) Body weight Heart rate Oxygen saturation Oxygen saturation in Arterial blood by Pulse oximetry Systolic And Diastolic Provider Name and Address Organization Details Last Updated DateTime 4 177.8 cm 26 kg/m2 95393.2 2 g 57 /min 98 % 98 % 128/78 mm[Hg] Khalida Resendez [facility] 4 09:57:41 Date Recorded Body height Body mass index (BMI) Body weight Heart rate Oxygen saturation Oxygen saturation in Arterial blood by Pulse oximetry Systolic And Diastolic Provider Name and Address Organization Details Last Updated DateTime 4 177.8 cm 27.1 kg/m2 05620.9 6 g 66 /min 99 % 99 % 126/76 mm[Hg] Andrew Yepez [facility] 4 14:54:17 Date Recorded Body height Body mass index (BMI) Body weight Heart rate Oxygen saturation Oxygen saturation in Arterial blood by Pulse oximetry Systolic And Diastolic Provider Name and Address Organization Details Last Updated DateTime 5 177.8 cm 27.2 kg/m2 94527.8 3 g 72 /min 97 % 97 % 128/84 mm[Hg] Debra Romo [facility] 5 09:55:29 Social History Question Answer Notes LastModified by Organizat ion Details LastModified Time Tobacco Smoking Status Former Smoker Quit 07/2023 [facility] 10/23/2023 14:53:15 What Is Your Level Of Caffeine Consumption? Moderate [id number] Information not available 12/31/2019 Which Illicit Or Recreational Drugs Have You Used? No [id number] Information not available 12/31/2019 What Was The Date Of Your Most Recent Tobacco Screening? 12/17/2024 [email or web address] Information not available 12/17/2024 How Much Tobacco Do You Smoke? No Information not available 10/23/2023 Sex: Unknown Functional Status Question Answer Note LastModified by Organizat ion Details LastModified Time What is your level of alcohol consumption? Moderate [id number] Information not available 12/31/2019 Do you or have you ever used smokeless tobacco? Former smokeless tobacco user Quit 07/2023 Information not available 10/23/2023 What is your exercise level? Moderate [id number] Information not available 12/31/2019 Mental Status None recorded. Family History Relationship Description Onset Age of this Age Resolved Age Notes LastModified by Organization Details LastModified Time Maternal Grandfather Family history of malignant neoplasm [email or web address] Not available 2019 09:34:28 Maternal Grandfather Heart disease sbucko Not available 2019 09:34:51 Paternal Grandfather Heart disease sbucko Not available 2019 09:35:03 Medical History No medical history recorded. Immunizations Vaccine Type Date Status Note Provider Nam e and Address Organization Details Recorded Time COVID-19 vaccine, vector-nr, rS-Ad26, PF, 0.5 mL 11/04/2020 completed Nalini Blanchard [facility] 01/31/2022 08:59:06 Past Encounters Encounter ID Performer Location Encounter Start Date Encounter Closed Date Diagnosis/Indication Diagnosis SNOMED-CT Code Diagnosis ICD10 Code Diagnosis IMO Codes Diagnosis Note [id number] Jaswinder Vargas [facility] [address],[place] [address] 04/12/2019 09:14:36 04/12/2019 10:26:27 Dyspnea 550366233 R06.00 continue proair as needed Snoring 94360675 R06.83 [id number] Jaswinder Vargas [facility] [address],[place] [address] 01/13/2020 13:57:09 01/13/2020 14:41:07 Lumbago-sciatica due to displacement of lumbar intervertebral disc 53253468 M51.17 Pain of bi lateral hip joints 9679505228 3500609 M25.551 M25.552 [id number] Jaswinder Vargas [facility] [address] [facility],[place] [address] 2020 16:20:03 2020 16:57:40 Herniation of lumbar intervertebral disc with sciatica 9118631811 60206 M51.16 will refer back to neurosurge on for considerat ion of epidural inj will need a new mri give re emergence of pain and possible worsening of the herniation [id number] Jaswinder Vargas [facility] [address], [place] [address] 05/18/2021 16:03:49 05/19/2021 16:18:11 Syncope 430622698 R55 will fu with fu work up to r/o cardiac abnormalit y Fall R29.6 r/o damage or bleed after head injury from fall Jaswinder Vargas [facility] [address], [place] [address] 02/01/2022 09:16:34 02/01/2022 10:09:41 Herniation of lumbar intervertebral disc with sciatica 4203467774 07764 M51.16 will refer back to neurosurge on for considerat ion of epidural inj ? if we will need a new mri give re emergence of pain and possible worsening of the herniation Numbness of hand 6752415 04 R20.0 [id number] Jaswinder Vargas [facility] [address], [place] [address] 02/17/2023 08:21:05 02/17/2023 15:48:00 Hypertensive disorder 34964663 I10 long discussion we will have him get treated with lisinopril 5mg and rechk in 1 month Traumatic brain injury 946221992 S06.9X0D occurred in 2010 and his symptoms are worsening [id number] Jaswinder Vargas [facility] [address],[place] [address] 03/27/2023 08:35:12 03/27/2023 15:37:39 Traumatic brain injury 440844539 S06.9X0A occurred in 2010 and his symptoms are worsening. he is clearly upset with a lot of the symptoms and i concur. i am not an expert in this syndrome and he has a refrral passed to see dr Monsalve waiting for the actual appt datehe has had MRI and now is waiting for a appt with TBI versed neurologis t. Hypertensive disorder 38 274847 I10 doing well we will follow and hopefully keep him on 5 but if he notices upwards trend we will need to bump to 19mg [id number] Jaswinder Vargas [facility] [address] [facility],[place] [address] 03/27/2023 10:22:27 03/27/2023 15:27:19 Hypertensive disorder 17140992 I10 long discussion we will have him get treated with lisinopril 5mg and rechk in 1 monthno prob with lisinopril 5mg and his home reading are running consistent ly below 140 systolic and mostly in the 120s if he notices a gradual creep upward we will bump him to 10mg Traumatic brain injury 473123517 S06.9X0A occurred in 2010 and his symptoms are worseningw e are referring him to dr Monsalve for full evaluation awiting actual appt date as the referral has been confirmed [id number] Jaswinder Vargas [facility] [address] [facility],[place] [address] 05/24/2023 15:40:18 05/24/2023 16:48:08 Hypertensive disorder 26408585 I10 noted his bp has been rising over the last couple weeks :long discussion we will have him get treated with lisinopril 5mg and rechk in 1 monthno prob with lisinopril 5mg and his home reading are running consistent ly below 140 systolic and mostly in the 120s if he notices a gradual creep upward we will bump him to 10mg Herniation of lumbar intervertebral disc with sciatica 4549268981 23447 M51.16 will refer back to neurosurge on for considerat ion of epidural inj ? if we will need a new mri give re emergence of pain and possible worsening of the herniation Fatigue 68436931 R53.83 [id number] Jaswinder Vargas [facility] [address] [facility],[place] [address] 07/25/2023 09:01:57 07/25/2023 11:24:40 Active or passive immunization 045807883 Z23 utd Adult heal th examination 563535108 Z00.01 physically except for his back he is goodneeds help with sleep and the apnea is not being taken care of Depression screening 171 476471 Z13.31 stable Insomnia 653476650 G47.0 1 pretty bad Sleep apnea 71055656 G47 .30 Vitamin D deficiency 347 68375 E55.9 Cobalamin deficiency 190 033983 E53.8 Eczema 82601899 L30.9 [id number] Jaswinder Vargas [facility] [address] [facility], [employer] [place] [address] 08/30/2023 09:52:34 08/30/2023 11:30:40 Cobalamin deficiency 717483222 E53.8 now stable Insomnia 730551903 G47.0 1 pretty bad but may be a little better Traumatic brain injury 021918259 S06.9X0A PRIORoccur red in 2010 and his symptoms are worseningw e are referring him to dr Monsalve for full evaluation waiting actual appt date as the referral has been confirmed Hypertensive disorder 38 043354 I10 noted his bp has been rising over the last couple weeks :long discussion we will have him get treated with lisinopril 5mg and rechk in 1 monthno prob with lisinopril 5mg and his home reading are running consistent ly below 140 systolic and mostly in the 120s if he notices a gradual creep upward we will bump him to 10mg [id number] Jaswinder Vargas [facility] [address] [facility], [employer] [place] [address] 10/23/2023 14:47:44 10/23/2023 15:31:22 Myelopathy due to cervical spondylosis 8635074995 M47.[address] wade in november for surg eval Lumbar spo ndylosis with myelopathy 83654146 M47.16 he will be seeing dr wade for eval believe he is heading towards procedure [id number] Jaswinder Vargas [facility] [address] [facility] [address] [address],[place] [address] 12/17/2024 09:26:44 12/17/2024 13:57:42 Active or passive immunization 157566340 Z23 utd Depression screening 171 742280 Z13.31 stable Hypertensive disorder 38 369805 I10 noted his bp has been doing well at home:long discussion we will have him get treated with lisinopril 5mg and rechk in 1 monthno prob with lisinopril 5mg and his home reading are running consistent ly below 140 systolic and mostly in the 120s if he notices a gradual creep upward we will bump him to 10mg Preventive procedure [id number] Z00.00 [id number] physically except for his back he is goodneeds help with sleep and the apnea is not being taken care of Irritable bowel syndrome with diarrhea [id number] K58.0 [id number] Health Concerns Section Related Observation LastModified by Organization Detai ls LastModified Time None Recorded Concern Status LastModified by Organization Details LastModified Time None Recorded Advance Directives Directive None Recorded Payers Insurance Date Sequence Insurance Name Policy Number Policy Servin Covered Member ID Servin Member ID Guarantor Name 12/17/2024 1 [facility] HEALTH [facility] (POS) [id number] Bernabe Lopez [id number] Bernabe Lopez 12/18/2024 1 [facility] () Bernabe Lopez [id number] Bernabe Lopez 12/17/2024 2 [facility] HEALTH [facility] (PPO) [id number] Bernabe Lopez [id number] Bernabe Lopez 12/17/2024 1 [facility] - (HMO) Bernabe Lopez [id number] Bernabe Lopez 12/17/2024 1 [facility] HEALTH PLAN - FAMILY HEALTH PLAN (POS) [id number] Bernabe Lopez [id number] Bernabe Lopez Notes Date Note Type Note Provider Name and Address Organization Details Recorded Time 4 text/htm l Annual WellnessReported by PatientSocial/Behavioral HistoryFor diet and nutrition, patient reportshealthy diet. For fracture risk, patient reportsno history of fractures,no recent explained fracture,no sudden unexplained fractures, andno previous musculoskeletal injuries. For physical activity, patient reportsexercises on a regular basis,recent increase in physical activity, andgood physical condition. For additional lifestyle factors, patient reportsno tobacco use,no alcohol intake, andstopped drinking alcohol.Mental Status:For depression risk, patient reportsnever feels sad, empty, or tearful,no loss of interest in activities,no significant changes in weight,no sleep disturbances or insomnia,no agitation,no loss of energy,no feelings of worthlessness or guilt,no thoughts of suicide,no history of depression, andno history of mood disorders.Functional AbilityFor hearing, patient reportsno loss of hearing. 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 ) evalfollows the spine specialists and will be getting a new MRI soonhad epidural inj to his neck weeks ago but did not help too much Jaswinder Vargas DO [address] [place], [address], [facility] 08/30/2023 10:48:33 4 text/htm l ROS as noted in the HPI here for rechk and is doing about the samerelates still very uncomfortable and relates that he has undergone easily 7-8 months of PT over the past yearhe is seeing dr wade the neurosurg next mo and will prob be heading to surgeryreviewed with pics his c spine disease and his lumbar spine diseaseunfortunately the degree of nerve impingement on each is certainly causing his symptoms Jaswinder Vargas DO [address] [place], [address], [facility] 10/23/2023 15:29:31 5 text/htm l Annual WellnessReported by PatientSocial/Behavioral HistoryFor diet and nutrition, patient reportshealthy diet. For fracture risk, patient reportsno history of fractures,no recent explained fracture,no sudden unexplained fractures, andno previous musculoskeletal injuries. For physical activity, patient reportsexercises on a regular basis,recent increase in physical activity, andgood physical condition. For additional lifestyle factors, patient reportsno tobacco use,no alcohol intake, andstopped drinking alcohol.Mental Status:For depression risk, patient reportsnever feels sad, empty, or tearful,no loss of interest in activities,no significant changes in weight,no sleep disturbances or insomnia,no agitation,no loss of energy,no feelings of worthlessness or guilt,no thoughts of suicide,no history of depression, andno history of mood disorders.Functional AbilityFor hearing, patient reportsno loss of hearing. For vision, patient reportsno vision problems. Care Management - HypertensionReported by PatientHPIFor self care, patient reportsnot under emotional stress. For severity, patient reportssymptoms are improvinganddoes not interfere with daily activities. For associated symptoms, patient reportsno dizziness,no lightheadedness,no chest pain,no shortness of breath,no palpitations,no edema,no calf muscle cramps,no blurred vision,no confusion,no headaches, andno fatigue.ROS as noted in the HPI Jaswinder Vargas, DO [address] [facility], [place], [address], [facility] 12/17/2024 10:25:33
[2024-12-30 07:24] LABS: MANUAL DIFF FLAG NO
[2024-12-30 07:52] LABS: Hematocrit 43.7 % (42.0-52.0); Hemoglobin 14.7 g/dl (14.0-18.0); Imm Gran Abs Auto 0.01 X10*3/uL (0.00-0.03); Imm Gran Pct Auto 0.2 % (0.0-0.4); Lymphocytes Absolute Auto 1.7 X10*3/uL (1.2-4.9); Mean Corpuscular HGB Conc 33.6 g/dl (31.0-36.0); Mean Corpuscular Hemoglobin 30.3 pg (27.0-33.0); Mean Corpuscular Volume 90.1 fL (80.0-98.0); NRBC Abs Auto 0.000 X10*3/uL (0.0-0.012); NRBC Pct Auto 0.0 /100WBC (0.0-0.2); Platelet Count 253 X10*3/uL (160-400); Red Blood Count 4.85 X10*6/uL (4.60-5.80); White Blood Count 4.4 X10*3/uL (4.8-10.8)
[2024-12-30 08:29] LABS: Alanine Aminotransferase 38 U/L (0-40); Albumin Level 4.6 g/dL (3.5-5.0); Alkaline Phosphatase 57 U/L (39-117); Anion Gap 9 (12-20); Aspartate Amino Transferase 25 U/L (5-37); Blood Urea Nitrogen 16 mg/dL (9-16); Calcium 8.9 mg/dL (8.4-10.2); Carbon Dioxide 29 mmol/L (22-29); Chloride 103 mmol/L (96-108); Cholesterol 220 mg/dL (<200); Estimated Glomerular Filt Rate > 60; HDL Cholesterol 42 mg/dL (>40); Potassium 4.2 mmol/L (3.3-5.1); Sodium 137 mmol/L (135-145); Total Protein 7.2 g/dL (6.5-8.0); Triglycerides 167 mg/dL (<150)
[2024-12-30 08:37] LABS: Prostate Specific Antigen 1.25 ng/mL (<0.05-4.0)
== END 2024-12-30 07:11 | disposition home or self-care (01) ==
LOC: HO.LAB 07:10
PROVIDERS: PCP Internal Medicine; Visit Provider Internal Medicine
DX: Z00.00 Encounter for general adult medical examination without abnormal findings (principal); Z13.6 Encounter for screening for cardiovascular disorders; Z12.5 Encounter for screening for malignant neoplasm of prostate
CPT/HCPCS: 36415; 80053; 80061; 82306; 84153; 85025